=== PATIENT | female | born 1990 | race Caucasian/White ===

== ENCOUNTER 2016-08-11 19:39 | Emergency (ER) | payer OTHER ==
[~2016-08-11] VITALS: Ht 160 cm; Wt 93.7 kg
[2016-08-11 20:44] LABS: INTERNAL CONTROL VALID? YES
[2016-08-11 20:54] LABS: ADD MIUA? YES; BILIRUBIN NEGATIVE; BLOOD NEGATIVE; COLOR YELLOW ((YELLOW)); GLUCOSE (STRIP) NEGATIVE; KETONES NEGATIVE; LEUKOCYTES NEGATIVE; NITRITE NEGATIVE; PROTEIN (STRIP) NEGATIVE; SPECIFIC GRAVITY 1.024 (1.000-1.030); UROBILINOGEN 0.2 MG/DL (0.2-1.0)
[2016-08-11 21:08] LABS: AMORPHOUS URATES CRYSTALS 2+; BACTERIA RARE /HPF; EPITHELIAL CELLS 1+ /HPF; RED BLOOD CELLS 0-5 /HPF (0-5); WHITE BLOOD CELLS 0-5 /HPF (0-5)
[2016-08-11 21:09] LABS: MUCUS TRACE /LPF
[2016-08-12] MEDS ORDERED: MOTRIN800 MG PO (00:12)
[2016-08-12] MEDS ORDERED: NORCO 7.5/321 TABLET PO (00:12)
[2016-08-12 00:29] VITALS: BP 123/71
== END 2016-08-12 00:47 | disposition home or self-care (01) ==
LOC: EME 19:39
PROVIDERS: Physician Assistant
DX: D25.9 Leiomyoma of uterus, unspecified (principal); N83.202 Unspecified ovarian cyst, left side
CPT/HCPCS: 76856; 81003; 84703; 93975; 99281; 99284; J1885; J3010; J7030